=== PATIENT | female | born 1950 | race Caucasian/White ===

== ENCOUNTER → 2016-12-22 | Outpatient (CLI) | payer OTHER | LOC: MMPC 09:00 | PROVIDERS: ATTEND Nurse Practitioner Family | DX: L29.2 Pruritus vulvae (principal); L23.9 Allergic contact dermatitis, unspecified cause | CPT/HCPCS: 99213; G0463 ==

== ENCOUNTER → 2016-12-28 | Outpatient (CLI) | payer OTHER | LOC: MMPC 09:00 | PROVIDERS: ATTEND Nurse Practitioner Family | DX: J01.00 Acute maxillary sinusitis, unspecified (principal) | CPT/HCPCS: 99214; G0463 ==

== ENCOUNTER → 2017-01-10 | Outpatient (CLI) | payer OTHER | LOC: MMPC 11:11 | PROVIDERS: ATTEND Nurse Practitioner | DX: I10 Essential (primary) hypertension (principal); E03.9 Hypothyroidism, unspecified; J30.9 Allergic rhinitis, unspecified; E78.5 Hyperlipidemia, unspecified | CPT/HCPCS: 99213 ==

== ENCOUNTER → 2017-02-13 | Outpatient (CLI) | payer OTHER | LOC: MMPC 09:00 | PROVIDERS: ATTEND Obstetrics & Gynecology | DX: L29.2 Pruritus vulvae (principal); N36.42 Intrinsic sphincter deficiency (ISD) | CPT/HCPCS: 99204; G0463 ==

== ENCOUNTER → 2017-02-26 | Outpatient (CLI) | payer OTHER | LOC: MMPC 09:00 | PROVIDERS: ATTEND Obstetrics & Gynecology | DX: L29.2 Pruritus vulvae (principal) | CPT/HCPCS: 99213; G0463 ==

== ENCOUNTER → 2017-03-29 | Outpatient (CLI) | payer OTHER | LOC: MMPC 09:00 | PROVIDERS: ATTEND Nurse Practitioner Family | DX: S60.222A Contusion of left hand, initial encounter (principal); W22.8XXA Striking against or struck by other objects, initial encounter | CPT/HCPCS: 99213; G0463 ==

== ENCOUNTER → 2017-05-31 | Outpatient (CLI) | payer OTHER | LOC: MMPC 11:11 | PROVIDERS: ATTEND Surgery | DX: K21.9 Gastro-esophageal reflux disease without esophagitis (principal); R49.0 Dysphonia | CPT/HCPCS: 99212 ==

== ENCOUNTER 2017-06-06 09:56 | Day surgery (SDC) | payer OTHER ==
[~2017-06-06 09:56] MED LIST: LIDOCAINE 2% VISCOUS(20 MG/1 ML) - 15 ML UD CUP PO ONE; LIDOCAINE HCL/PF 2% (20 MG/ML) - 5 ML SYRINGE ONE; LIDOCAINE W/ SODIUM BICARB 0.5 ML SYR ONE; Lactated Ringers 1,000 ML PRIMARY IV ONE; MIDAZOLAM 5 MG/1 ML ONE; fentaNYL Inj 100 MCG/2 ML VIAL ONE
--- NOTE | 2017-06-06 12:02 | GEN.OPNOTE ---
EGD Operative Note Surgery Date: 06/06/17 Preoperative Diagnosis: Chronic GERD. Hoarseness. Postoperative Diagnosis: Same. Incomplete approximation of the vocal cords. Paralyzed left vocal cord. Procedure: Esophagogastroduodenoscopy with biopsy. Surgeon: William Toussaint MD Anesthesia Provider: Vishal Carpio CRNA Anesthesia Type: MAC Indications: See preoperative diagnosis. Findings: Esophagus: [Normal] GE Junction : [Normal appearing distal esophageal mucosa. Biopsies taken. 5-6 cm hiatal hernia.] Fundus : [Mucosa normal. Fundic gland polyps.] Body : [Fundic gland polyps. Otherwise normal.] Prepyloric : [Visually normal] Small Intestine : [Visually normal] A lubricated flexible upper endoscope was inserted and passed through the esophagus and stomach into the duodenum. The duodenum and duodenal bulb were unremarkable. Pyloric channel was patent. The scope was withdrawn into the stomach. Antral biopsies were taken. Hemostasis was assured. The scope was retroflexed. There is some fundic gland polyps. The scope was withdrawn into the distal esophagus. There is a 5-6 cm hiatal hernia. There is no significant inflammation of the distal esophageal mucosa. Biopsies were taken. Hemostasis was assured. The scope was withdrawn through the remainder of a normal-appearing esophagus. The vocal cords were visualized. There is incomplete closure of the vocal cords. The left vocal cord appears paralyzed. The scope was withdrawn through the mouth under suction completing the procedure. Patient tolerated the entire procedure well without complication. She was taken to outpatient surgery in stable condition. We will call the biopsy results when available and plan therapy and follow-up accordingly. Estimated Blood Loss (mL): 1 Fluids: 500 mL of crystalloid. Pathology: Antral and distal esophageal biopsies sent. Complications: none.
[2017-06-06 12:06] VITALS: RESP 14
[2017-06-06 12:22] VITALS: TEMP 97.3
== END 2017-06-06 12:18 | disposition home or self-care (01) ==
LOC: SDSC 09:56
PROVIDERS: ATTEND Surgery
DX: K21.9 Gastro-esophageal reflux disease without esophagitis (principal); R49.0 Dysphonia; J38.01 Paralysis of vocal cords and larynx, unilateral
CPT/HCPCS: 43239; J2250; J2704; J3010; J7120